=== PATIENT | male | born 1955 ===

== ENCOUNTER 2019-11-19 00:21 | Outpatient (CLI) | payer OTHER, SELFPAY ==
[2019-11-19 18:00] LABS: SARS-CoV-2 RNA PCR Negative
== END 2019-11-19 00:22 | disposition home or self-care (01) ==
LOC: ANHCOVIDDT 00:21
PROVIDERS: PCP Family Medicine Adolescent Medicine; Visit Provider Internal Medicine Gastroenterology
DX: Z01.812 Encounter for preprocedural laboratory examination (principal); Z20.828 Contact with and (suspected) exposure to other viral communicable diseases
CPT/HCPCS: 87635; C9803; U0003

== ENCOUNTER 2019-11-22 00:44 | Day surgery (SDC) | payer OTHER, SELFPAY ==
[2019-11-15 10:35] VITALS: BMI 38.0
--- NOTE | 2019-11-22 06:45 | WPDANESEPPF ---
Anes - Initial Pre Proc Eval Procedure: Operation Date: 11/22/19 07:30 Proposed Procedures p Colonoscopy - Jamison Schofield MD Date/Time: 11/22/19 06:45 Surgeon: Jamison Schofield MD Pre Op Diagnosis: Occult GI Bleeding Patient Data Age: 63 Gender: M Height: 6 ft 5 in Weight: 145.45 kg Allergies Allergy/AdvReac Type Severity Reaction Status Date / Time No Known Allergies Allergy Unknown Verified 11/22/19 06:38 Home Medications Medication Instructions Recorded Confirmed Type aspirin 325 mg PO DAILY 11/15/19 11/15/19 History diphenhydramine HCl [Benadryl] 50 mg PO HS 11/15/19 11/15/19 History lisinopril 20 mg PO DAILY 11/15/19 11/15/19 History [id number]-vit [id number] 1 cap PO DAILY 11/15/19 11/15/19 History [Daily Multivitamin] sildenafil 100 mg PO PRN PRN 11/15/19 11/15/19 History simvastatin 20 mg PO DAILY 11/15/19 11/15/19 History Patient hx anesthesia problems: none Family hx anesthesia problems: none PMFSH Past Medical History Medical History Hyperlipidemia Hypertension CHAD (obstructive sleep apnea) Family History Family History Other Family history of cardiovascular disease Hypertension Social History Social History Smoking status: Never smoker Alcohol intake: current Anes - Eval Final PreProcedure Day of Procedure 11/22/19 06:45 Patient weight: obese Heart: regular rate and rhythm Lungs: clear to auscultation Airway: Mallampati scale class III Neurological: alert and oriented Last oral intake: >/= 8 hours ASA classification: III Emergent: no Anesthetic plan: proceed Anesthesia type and monitoring: general GIVS and standard monitoring Informed Consent: The patient's anesthetic plan and its attendant risks and benefits were discussed with the patient/family/POA. Questions were solicited and answers provided to the satisfaction of the patient/family/POA.
[2019-11-22] MEDS: LACTATED RINGERS 1,000 ML 150 ML IV CONT (06:53)
[2019-11-22 06:57] VITALS: BP 140/87; PULSE 83; RESP 14; TEMP 36.4; O2SAT 95; BMI 42.8
--- NOTE | 2019-11-22 07:46 | WPDGICN ---
Assessment and Plan Assessment and plan (1) Positive FIT (fecal immunochemical test): Code(s): R19.5 - Other fecal abnormalities Status: Acute Assessment and Plan: Occult blood in stool identified. Plan is for screening colonoscopy at this time. High-fiber diet suggested. Further recommendations may be given after endoscopy. GI Consult Note Consult date/time: 11/22/19 07:46 HPI: Owen Johnson is a 63 year old male Seen in evaluation at the request of Dr. Mayank Melton. Patient presents for colonoscopy. Patient recently had a positive stool Hemoccult test. He denies any obvious blood in his stools. He denies abdominal pain. His weight appetite bowel movements are normal. His family history is noncontributory. He has been in general good health. Review of Systems Review of Systems: All systems reviewed & are unremarkable except as noted in HPI and below PMFSH Past Medical History Medical History Hyperlipidemia Hypertension CHAD (obstructive sleep apnea) Family History Family History Other Family history of cardiovascular disease Hypertension Social History Social History Smoking status: Never smoker Alcohol intake: current Meds Home Medications and Allergies Home Medications Medication Instructions Recorded Confirmed Type aspirin 325 mg PO DAILY 11/15/19 11/22/19 History diphenhydramine HCl [Benadryl] 50 mg PO HS 11/15/19 11/22/19 History lisinopril 20 mg PO DAILY 11/15/19 11/22/19 History [id number]-vit [id number]-[id number] 1 cap PO DAILY 11/15/19 11/22/19 History [Daily Multivitamin] sildenafil 100 mg PO PRN PRN 11/15/19 11/15/19 History simvastatin 20 mg PO DAILY 11/15/19 11/22/19 History Allergies Allergy/AdvReac Type Severity Reaction Status Date / Time No Known Allergies Allergy Unknown Verified 11/22/19 06:38 Vital Signs Vital Signs - 24 hr 11/22/19 06:57 Temperature 36.4 C L Pulse Rate 83 Respiratory Rate 14 Blood Pressure 140/87 Pulse Oximetry 95 Exam Narrative: Exam Narrative: Physical exam reveals patient to be alert. Vital signs are stable. HEENT exam unremarkable. Lungs are clear to auscultation and percussion. Heart is without murmur or extra sounds. Abdominal exam is obese. Bowel sounds are present soft nontender with no organomegaly. Digital external rectal exam normal.
[2019-11-22 07:48] VITALS: BP 133/87; PULSE 77; RESP 18; O2SAT 98
[2019-11-22 07:58] VITALS: BP 131/78; PULSE 74; RESP 18; O2SAT 98
[2019-11-22 08:08] VITALS: BP 127/80; PULSE 74; RESP 18; O2SAT 98
== END 2019-11-22 08:30 | disposition home or self-care (01) ==
PROVIDERS: PCP Family Medicine Adolescent Medicine; Visit Provider Internal Medicine Gastroenterology
PROC: 0DJD8ZZ Inspection of Lower Intestinal Tract, Via Natural or Artificial Opening Endoscopic (ICD-10-PCS; CPT 45378; principal; 2019-11-22 07:30)
DX: R19.5 Other fecal abnormalities (principal); K64.8 Other hemorrhoids; I10 Essential (primary) hypertension; E78.5 Hyperlipidemia, unspecified; G47.33 Obstructive sleep apnea (adult) (pediatric); Z79.82 Long term (current) use of aspirin; E66.01 Morbid (severe) obesity due to excess calories; Z68.41 Body mass index [BMI] 40.0-44.9, adult
CPT/HCPCS: 45378; J2704; J7120